=== PATIENT | female | born 1990 | race Caucasian/White ===

== ENCOUNTER 2017-01-06 15:46 | Emergency (ER) | payer MEDICAID ==
[~2017-01-06] VITALS: Ht 160 cm; Wt 54.5 kg
[2017-01-06] MEDS ORDERED: ACETAMINOPHEN 325 MG TABLET PO ONE (18:15)
[2017-01-06 19:28] VITALS: BP 117/84
== END 2017-01-06 19:51 | disposition home or self-care (01) ==
LOC: EMS 15:49
DX: J02.8 Acute pharyngitis due to other specified organisms (principal); B97.89 Other viral agents as the cause of diseases classified elsewhere; R51 Headache
CPT/HCPCS: 81025; 87430; 99283